=== PATIENT | female | born 1935 | race Caucasian/White ===

== ENCOUNTER → 2017-02-24 | Outpatient (CLI) | payer MEDICARE ==
[~2017-02-24] MED LIST: ACET-62 PO; ALBU2.5V7 AEROSOL; ALBU8.5H INH; ASPI81TA2 PO; ATEN-39 PO; CALC-689 PO; CITA-49 PO; DOCU-118 PO; FLUT100D2 ORAL INH; LISI-126 PO; LORA10TA7 PO; OMEP-29 PO; RANI-197 PO; SIMV40TA2 PO; [UNRECOGNIZED DRUG - CODE] PO
--- NOTE | 2017-02-24 11:36 | DI ---
Indication: ITS.REASON: R19.00 PELVIC SWELLING PROCEDURE: PET/CT SKULL TO THIGH INITIAL: Encounter: Initial Comparison: CT abdomen/pelvis dated January 14, 2017 and abdominal MRI dated January 25, 2017 Technique: 16.3 mCi of F-18 FDG was administered intravenously via the right antecubital fossa. Approximately 60 minutes later 3D PET/CT imaging was performed from the skull base through the mid thighs. The CT images are for attenuation correction purposes only. Findings: No areas of abnormal uptake seen within the skull base. Uptake in the paraspinal musculature of the neck could be due to trauma. Markedly enlarged hypermetabolic thyroid gland possibly due to a multinodular goiter. This has an SUV max of 4.2. No metabolically active lymphadenopathy seen elsewhere within the neck. No axillary or mediastinal lymphadenopathy. No hypermetabolic pulmonary nodules or masses seen. Respiratory motion artifact. Expected myocardial uptake. Liver uptake is fairly homogeneous without discrete metabolically active nodule or mass. There is focal uptake within the right and transverse colon. In retrospect on the CT scan, there is a nodular 3.2 cm low-attenuation lesion adjacent to the ileocecal valve that could represent a colon mass. This area has an SUV max of 12.7. No adjacent metabolic adenopathy. Expected genitourinary tract uptake. The presacral nodular lesion of concern on prior CT scan does show mildly increased FDG accumulation. This has an SUV max of 5.4. No additional metabolic nodules or adenopathy seen within the abdomen or pelvis. No areas of concerning skeletal uptake. Impression: 1. Hypermetabolic right and transverse colon with suggestion of a possible 3 cm mass within the cecum immediately adjacent to the ileocecal valve. Recommend direct visualization with colonoscopy. The presacral hypermetabolic nodules could represent metastatic lymph nodes. If colonoscopy is negative for mass I would recommend biopsy of the presacral lesion. 2. Markedly enlarged heterogeneous thyroid gland suggesting multinodular goiter and possible thyroiditis. .
== END ==
LOC: IMA 08:46
PROVIDERS: ATTEND Nurse Practitioner Family
DX: R19.09 Other intra-abdominal and pelvic swelling, mass and lump (principal); K63.9 Disease of intestine, unspecified; E04.9 Nontoxic goiter, unspecified

== ENCOUNTER 2017-03-22 07:26 | Day surgery (SDC) | payer MEDICARE ==
[~2017-03-22] VITALS: Ht 154.9 cm; Wt 98.6 kg
[~2017-03-22 07:26] MED LIST changes: +LIDOCAINE 1% (10mg/ml) 2ml SDV INJ ONE; +LR 1,000 ML IV SCH
[2017-03-22 07:30] VITALS: BP 132/61; PULSE 64; RESP 17; TEMP 97.8; O2SAT 99; Ht 154.9 cm; Wt 98.6 kg
--- OUTSIDE RECORDS SUMMARY | 2017-03-22 07:30 | XMS REPORT ---
Author Author Bridget Fairchild [facility] eClinicalWorks Address Unknown Phone Unavailable Care Team Providers Care Stamp Maker Name Role Phone Bridget Fairchild CP Unavailable Allergies No Known Allergies Problems Problem Type Condition Code Onset Dates Condition Status Assessment Essential (primary) hypertension I10 Active Problem Hyperlipidemia, unspecified E78.5 Active Problem Major depressive disorder, single episode, unspecified F32.9 Active Problem Essential (primary) hypertension I10 Active Problem Chronic obstructive pulmonary disease, unspecified J44.9 Active Assessment Chronic obstructive pulmonary disease, unspecified J44.9 Active Problem 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 Problem Hypoxemia R09.02 Active Medications Medication Code System Code Instructions Start Date End Date Status Dosage Lisinopril [facility] [address]-13 20 MG Orally Once a day 1 tablet Flovent HFA [facility] [address]-86 110 MCG/ACT Inhalation 1 Aug 30, 2015Nov 2 Ranitidine HCl [facility] [address]-07 150 MG Orally Twice a day 1 capsule Celexa [facility] [address]-19 40 MG Orally Once a day 0.5 tablet Albuterol Sulfate [facility] [address]-65 (2.5 MG/3ML) 0.083% Inhalation Three times a day 3 ml Ultram [facility] [address]-90 50 MG Orally every 6 hrs 1 tablet as needed Simvastatin [facility] [address]-23 40 MG Orally Once a day 1 tablet in the evening Atenolol [facility] [address]-59 50 MG Orally Once a day 1 tablet Omeprazole [facility] [address]-68 20 MG Orally Once a day 1 capsule ProAir HFA [facility] [address]-03 108 (90 Base) MCG/ACT Inhalation every 4 hrs 2 puffs as needed Procedures Procedure Coding System Code Date OFFICE VISIT, ASPHALT PAVER-BRIEF (10 MIN.) CPT-4 24946 Aug 30, 2015 [facility] visit New Patient CPT-4 G0466 Aug 30, 2015 Results No Known Results Summary Purpose eClinicalWorks Submission
--- OUTSIDE RECORDS SUMMARY | 2017-03-22 07:30 | XMS REPORT ---
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
--- OUTSIDE RECORDS SUMMARY | 2017-03-22 07:30 | XMS REPORT ---
Author Author María Shearer Organization eClinicalWorks Address Unknown Phone Unavailable Care Team Providers Care Juice Mixer Name Role Phone María Shearer CP Unavailable Allergies No Known Allergies Problems [...]
--- OUTSIDE RECORDS SUMMARY | 2017-03-22 07:30 | XMS REPORT ---
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 Assessment Chronic obstructive pulmonary disease, unspecified J44.9 Active Assessment Hyperlipidemia, unspecified E78.5 Active Assessment Hypothyroidism, unspecified E03.9 Active Problem Essential (primary) hypertension I10 Active Problem Hyperlipidemia, unspecified E78.5 Active Problem Hypothyroidism, unspecified E03.9 Active Problem Hypoxemia R09.02 Active Problem Chronic obstructive pulmonary disease, unspecified J44.9 Active Problem Major depressive disorder, single episode, unspecified F32.9 Active Problem 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 Medications Medication Code System Code Instructions Start Date End Date Status Dosage Oxygen NDC 0 Titrate inhaled Constant not defined Lisinopril [facility] [address]-15 20 MG Orally Once a day [address] [facility] [address]-60 50 MG Orally Once a day [address]FA [facility] [address]-51 108 (90 Base) MCG/ACT Inhalation every 4 hrs 2 puffs as needed Flovent HFA [facility] [address]-20 110 MCG/ACT Inhalation Twice a day [address] [facility] [address]-07 40 MG Orally Once a day 1 tablet in the evening Celexa [facility] [address]-21 40 MG Orally Once a day 1 tablet Aspir-[address] [facility] [address]-41 81 MG Orally Once a day 1 tablet Calcium + D [facility] [address]-45 600-200 MG-UNIT Orally Once a day 1 tablet with food Tramadol HCl [facility] [address]-70 50 MG Orally every 6 hrs 1 tablet as needed Albuterol Sulfate [facility] 96459876434 (2.5 MG/3ML) 0.083% USE ONE VIAL UP TO 4 TIMES DAILY NEEDED FOR SHORTNESS OF BREATH OR ASTHMA SYMPTOMS- NO DOSES CLOSER THAN 2 HOURS APART VIA NEBULIZER Ranitidine HCl [facility] [address]-38 150 MG Orally Twice a day [address] [facility] [address]-36 20 MG Orally Once a day [address] [facility] [address]-70 100 MG Orally Once a day 1 capsule as needed Procedures Procedure Coding System Code Date IH CMP CPT-4 79171 Sep 29, 2016 IH LIPID PANEL CPT-4 49008 Sep 29, 2016 COMPLETE CBC W/AUTO DIFF WBC CPT-4 30012 Sep 29, 2016 TSH WITH REFLEX T4 CPT-4 28920 Sep 29, 2016 Results No Known Results Summary Purpose eClinicalWorks Submission
--- OUTSIDE RECORDS SUMMARY | 2017-03-22 07:30 | XMS REPORT ---
Author Author Bridget Fairchild [facility] eClinicalWorks Address Unknown Phone Unavailable Care Team Providers Care Marine Water Tender Name Role Phone Bridget Fairchild CP Unavailable [...]
--- OUTSIDE RECORDS SUMMARY | 2017-03-22 07:31 | XMS REPORT ---
Author Author María Shearer Organization eClinicalWorks Address Unknown Phone Unavailable Care Team Providers Care Shellfish Processing Machine Tender Name Role Phone María Shearer CP Unavailable Allergies No Known Allergies Problems Problem Type Condition Code Onset Dates Condition Status Assessment Essential (primary) hypertension I10 Active Assessment Hyperlipidemia, unspecified E78.5 Active Assessment Major depressive disorder, single episode, unspecified F32.9 Active Problem Essential (primary) hypertension I10 Active Problem Hyperlipidemia, unspecified E78.5 Active Problem Hypothyroidism, unspecified E03.9 Active Problem Hypoxemia R09.02 Active Problem Chronic obstructive pulmonary disease, unspecified J44.9 Active Problem Major depressive disorder, single episode, unspecified F32.9 Active Problem 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 Medications Medication Code System Code Instructions Start Date End Date Status Dosage Celexa [facility] [address]-72 40 MG Orally Once a day 1 tablet Lisinopril [facility] [address]-75 20 MG Orally Once a day 1 tablet Omeprazole [facility] [address]-20 20 MG Orally Once a day 1 capsule Ranitidine HCl [facility] [address]-10 150 MG Orally Twice a day 1 capsule Atenolol [facility] [address]-69 50 MG Orally Once a day 1 tablet Simvastatin [facility] [address]-88 40 MG Orally Once a day 1 tablet in the evening Results No Known Results Summary Purpose eClinicalWorks Submission
--- OUTSIDE RECORDS SUMMARY | 2017-03-22 07:31 | XMS REPORT ---
Author Author Bridget Fairchild [facility] eClinicalWorks Address Unknown Phone Unavailable Care Team Providers Care Bone Char Kiln Tender Name Role Phone Bridget Fairchild CP [...]
--- OUTSIDE RECORDS SUMMARY | 2017-03-22 07:31 | XMS REPORT ---
Author Author María Shearer Organization eClinicalWorks Address Unknown Phone Unavailable Care Team Providers Care Sales And Marketing Vice President Name Role Phone María Shearer CP Unavailable Allergies No Known Allergies Problems Problem Type Condition Code Onset Dates Condition Status Problem Essential (primary) hypertension I10 Active Problem Hyperlipidemia, unspecified E78.5 Active Problem Hypothyroidism, unspecified E03.9 Active Problem Hypoxemia R09.02 Active Problem Chronic obstructive pulmonary disease, unspecified J44.9 Active Problem Major depressive disorder, single episode, unspecified F32.9 Active Problem 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
--- OUTSIDE RECORDS SUMMARY | 2017-03-22 07:31 | XMS REPORT ---
Author Author Bridget Fairchild [facility] eClinicalWorks Address Unknown Phone Unavailable Care Team Providers Care Service Operations Manager Name Role Phone Bridget Fairchild CP Unavailable Allergies, Adverse Reactions, Alerts Substance Reaction Event Type eye drops Info Not Available Non Drug Allergy budesomide Info Not Available Non Drug Allergy HCTZ Info Not Available Non Drug Allergy triamterene Info Not Available Non Drug Allergy Problems Problem Type Condition Code Onset Dates Condition Status Assessment Chronic obstructive pulmonary disease, unspecified J44.9 Active Assessment Pain, unspecified R52 Active Problem Hyperlipidemia, unspecified E78.5 Active Problem Major depressive disorder, single episode, unspecified F32.9 Active Problem Essential (primary) hypertension I10 Active Problem Chronic obstructive pulmonary disease, unspecified J44.9 Active Assessment Essential (primary) hypertension I10 Active Problem 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 Problem Hypoxemia R09.02 Active Medications Medication Code System Code Instructions Start Date End Date Status Dosage Atenolol [facility] [address]-34 50 MG Orally Once a day 1 tablet Ultram [facility] [address]-47 50 MG Orally every 6 hrs Jul 04, 2016 1 tablet as needed Celexa [facility] [address]-61 40 MG Orally Once a day 0.5 tablet Ranitidine HCl [facility] [address]-32 150 MG Orally Twice a day 1 capsule Albuterol Sulfate [facility] [address]-25 (2.5 MG/3ML) 0.083% Inhalation Three times a day 3 ml ProAir HFA [facility] [address]-97 108 (90 Base) MCG/ACT Inhalation every 4 hrs 2 puffs as needed Omeprazole [facility] [address]-95 20 MG Orally Once a day 1 capsule Lisinopril [facility] [address]-95 20 MG Orally Once a day 1 tablet Simvastatin [facility] [address]-87 40 MG Orally Once a day 1 tablet in the evening Loratadine [facility] [address]-15 10 MG Orally Once a day March 06, 2016Aug 1 tablet Procedures Procedure Coding System Code Date OFFICE VISIT, EST-LOW COMPLEXITY (15 MIN.) CPT-4 97275 March 06, 2016 [facility] visit Established Patient CPT-4 G0467 March 06, 2016 Vital Signs Date/Time: March 06, 2016 BMI 40.92 Index Height 63 in Weight 231 lbs Respiratory Rate 20 /min Blood Pressure Diastolic 54 mm Hg Blood Pressure Systolic 107 mm Hg Cardiac Monitoring Heart Rate 66 /min Results No Known Results Summary Purpose eClinicalWorks Submission
--- OUTSIDE RECORDS SUMMARY | 2017-03-22 07:31 | XMS REPORT ---
Author Author María Shearer [facility] eClinicalWorks Address Unknown Phone Unavailable Care Team Providers Care Well Cleaner Name Role Phone María Shearer CP Unavailable Allergies, Adverse Reactions, Alerts Substance Reaction Event Type "eye drops" Info Not Available Non Drug Allergy budesonide Info Not Available Non Drug Allergy HCTZ Info Not Available Non Drug Allergy triamterene Info Not Available Non Drug Allergy Problems Problem Type Condition Code Onset Dates Condition Status Assessment Chronic obstructive pulmonary disease, unspecified J44.9 Active Assessment Hyperlipidemia, unspecified E78.5 Active Assessment Major depressive disorder, single episode, unspecified F32.9 Active Problem Hyperlipidemia, unspecified E78.5 Active Problem Major depressive disorder, single episode, unspecified F32.9 Active Problem Essential (primary) hypertension I10 Active Problem Chronic obstructive pulmonary disease, unspecified J44.9 Active Assessment Essential (primary) hypertension I10 Active Problem 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 Problem Hypoxemia R09.02 Active Medications Medication Code System Code Instructions Start Date End Date Status Dosage Loratadine [facility] [address]-25 10 MG Orally Once a day March 06, 2016Aug 1 tablet Omeprazole [facility] [address]-72 20 MG Orally Once a day 1 capsule ProAir HFA [facility] [address]-09 108 (90 Base) MCG/ACT Inhalation every 4 hrs 2 puffs as needed Lisinopril [facility] [address]-47 20 MG Orally Once a day 1 tablet Tramadol HCl [facility] [address]-47 50 MG Orally every 6 hrs 1 tablet as needed Atenolol [facility] [address]-68 50 MG Orally Once a day 1 tablet Flovent HFA [facility] [address]-39 110 MCG/ACT Inhalation Twice a day 1 puff Oxygen ND 0 Titrate inhaled Constant not defined Colace [facility] [address]-15 100 MG Orally Once a day 1 capsule as needed Celexa [facility] [address]-76 40 MG Orally Once a day 1 tablet Calcium + D [facility] [address]-25 600-200 MG-UNIT Orally Once a day 1 tablet with food Albuterol Sulfate [facility] 75596307278 (2.5 MG/3ML) 0.083% USE ONE VIAL UP TO 4 TIMES DAILY NEEDED FOR SHORTNESS OF BREATH OR ASTHMA SYMPTOMS- NO DOSES CLOSER THAN 2 HOURS APART VIA NEBULIZER Ranitidine HCl [facility] [address]-73 150 MG Orally Twice a day 1 capsule Aspir-81 [facility] [address]-54 81 MG Orally Once a day 1 tablet Simvastatin [facility] [address]-26 40 MG Orally Once a day 1 tablet in the evening Procedures Procedure Coding System Code Date OFFICE VISIT, EST-LOW COMPLEXITY (15 MIN.) CPT-4 69551 Aug 11, 2016 [facility] visit Established Patient CPT-4 G0467 Aug 11, 2016 Vital Signs Date/Time: Aug 11, 2016 Temperature 98.6 F Height 63 in Weight 234.3 lbs Blood Pressure Diastolic 62 mm Hg Blood Pressure Systolic 128 mm Hg Cardiac Monitoring Heart Rate 61 /min BMI 41.50 Index Oximetry 98 % Respiratory Rate 20 /min Results No Known Results Summary Purpose eClinicalWorks Submission
--- OUTSIDE RECORDS SUMMARY | 2017-03-22 07:31 | XMS REPORT ---
Author Author Bridget Fairchild [facility] eClinicalWorks Address Unknown Phone Unavailable Care Team Providers Care Beauty Parlor Cleaner Name Role Phone Bridget Fairchild CP Unavailable [...] Instructions Start Date End Date Status Dosage Omeprazole [facility] [address]-60 20 MG Orally Once a day 1 capsule Celexa [facility] [address]-22 40 MG Orally Once a day 0.5 tablet Albuterol Sulfate [facility] [address]-13 (2.5 MG/3ML) 0.083% Inhalation Three times a day 3 ml Ranitidine HCl [facility] [address]-01 150 MG Orally Twice a day 1 capsule Simvastatin [facility] [address]-25 40 MG Orally Once a day 1 tablet in the evening Atenolol [facility] [address]-12 50 MG Orally Once a day 1 tablet ProAir HFA [facility] [address]-06 108 (90 Base) MCG/ACT Inhalation every 4 hrs 2 puffs as needed Ultram [facility] [address]-34 50 MG Orally every 6 hrs 1 tablet as needed Flovent HFA [facility] [address]-05 110 MCG/ACT Inhalation 1 Aug 30, 2015Nov 2 Lisinopril [facility] [address]-63 20 MG Orally Once a day 1 tablet Procedures Procedure Coding System Code Date OFFICE VISIT, EST-LOW COMPLEXITY (15 MIN.) CPT-4 87236 Nov 25, 2015 [facility] visit Established Patient CPT-4 G0467 Nov 25, 2015 Vital Signs Date/Time: Nov 25, 2015 Height 63 in Weight 237 lbs Temperature 97.9 F Blood Pressure Diastolic 80 mm Hg Blood Pressure Systolic 136 mm Hg Cardiac Monitoring Heart Rate 65 /min BMI 41.98 Index Respiratory Rate 20 /min Results No Known Results Summary Purpose eClinicalWorks Submission
--- OUTSIDE RECORDS SUMMARY | 2017-03-22 07:31 | XMS REPORT ---
Author Author Bridget Fairchild [facility] eClinicalWorks Address Unknown Phone Unavailable Care Team Providers Care Paste Mixer Name Role Phone Bridget Fairchild CP Unavailable [...]
--- OUTSIDE RECORDS SUMMARY | 2017-03-22 07:31 | XMS REPORT ---
Author Author María Shearer Organization eClinicalWorks Address Unknown Phone Unavailable Care Team Providers Care Government Instructor Name Role Phone María Shearer CP Unavailable [...]
--- OUTSIDE RECORDS SUMMARY | 2017-03-22 07:31 | XMS REPORT ---
Author Author María Shearer Organization eClinicalWorks Address Unknown Phone Unavailable Care Team Providers Care Dynamite Reclaimer Name Role Phone María Shearer CP Unavailable [...] Instructions Start Date End Date Status Dosage Ranitidine HCl [facility] [address]-52 150 MG Orally Twice a day 1 capsule Results No Known Results Summary Purpose eClinicalWorks Submission
--- OUTSIDE RECORDS SUMMARY | 2017-03-22 07:31 | XMS REPORT ---
Author Author Bridget Fairchild [facility] eClinicalWorks Address Unknown Phone Unavailable Care Team Providers Care Television News Anchor Name Role Phone Bridget Fairchild CP Unavailable [...] Start Date End Date Status Dosage Atenolol [facility] [address]-28 50 MG Orally Once a day 1 tablet Results No Known Results Summary Purpose eClinicalWorks Submission
--- OUTSIDE RECORDS SUMMARY | 2017-03-22 07:31 | XMS REPORT ---
Author Author Bridget Fairchild [facility] eClinicalWorks Address Unknown Phone Unavailable Care Team Providers Care Chain Tender Name Role Phone Bridget Fairchild CP [...]
--- NOTE | 2017-03-22 10:42 | ANESPREOP ---
Anesthesia Record Date and Time DATE: 03/22/17 TIME: 10:34 Proposed Surgical Procedure COLONOSCOPY NPO since: 2300 Allergies: Coded Allergies: budesonide (Verified Allergy, Unknown, 03/22/17) hydrochlorothiazide (Verified Allergy, Unknown, 03/22/17) triamterene (Verified Allergy, Unknown, 03/22/17) Uncoded Allergies: EYE DROPS FOR GLUACOMA (Allergy, Unknown, 11/25/15) Ht/Wt/BMI Height: 5 ' 1.00 " Weight: 98.600 kg BMI: 41.1 kg/m2 Vital Signs Date Time Temp Pulse Resp B/P Pulse Ox O2 Delivery O2 Flow Rate FiO2 03/22/17 07:30 97.8 64 17 132/61 99 Nasal Cannula 2.00 Medications Inpatient Medications Current Medications Medications (Trade) Dose Ordered Sig/Fredrick Start Time Stop Time Status Last Admin Dose Admin Lactated Ringer's (Lactated Ringers) 1,000 ml @ 50 mls/hr Q20H 03/22/17 07:00 03/22/17 07:58 50 MLS/HR Acetaminophen (Acetaminophen) 500 Mg Tablet, 1,000 MG PO DAILY, (Reported) Last Taken: on 03/21/17 2100 Albuterol Sulfate (Albuterol Sulfate) 2.5 Mg/3 Ml Vial.neb, 2.5 MG AEROSOL BID, (Reported) Last Taken: on 03/22/17 0600 Albuterol Sulfate (Proair HFA 90 mcg/actuation) 8.5 Gm Hfa.aer.ad, 1 PUFF INH PRN PRN for asthma, (Reported) Last Taken: on 03/22/17 0700 Aspirin (Aspirin) 81 Mg Tab.chew, 81 MG PO DAILY , (Reported) Last Taken: on 12/22/16 Atenolol (Atenolol) 50 Mg Tablet, 50 MG PO DAILY, ( Reported) Last Taken: on 03/22/17 0600 Calcium Carbonate/Vitamin D3 (Calcium 500 + Vit D Caplet) 1 Each Tablet, 1 TAB PO DAILY, (Reported) Last Taken: on 03/21/17 0800 Citalopram (Celexa) 20 Mg Tablet, 20 MG PO DAILY, (Reported) Last Taken: on 03/21/17 0800 Docusate Sodium (Colace) 100 Mg Capsule, 200 MG PO DAILY PRN for CONSTIPATION/STOOL SOFTENING, (Reported) Last Taken: on Unknown Date & Time Fluticasone Propionate (Flovent Diskus) 100 Mcg Blst.w.dev, 1 PUFF ORAL INH BID, (Reported) Last Taken: on 03/22/17 0600 Lisinopril (Lisinopril) 20 Mg Tablet, 20 MG PO DAILY, (Reported) Last Taken: on 03/21/17 0800 Loratadine (Loratadine) 10 Mg Tablet, 10 MG PO DAILY, (Reported) Last Taken: on 03/21/17 0800 [place]-3 Fatty Acids/Fish Oil (Fish Oil 1,000 mg Softgel) 1 Each Capsule, 1,000 MG PO DAILY, (Reported) Last Taken: on 03/18/17 Omeprazole (Prilosec) 20 Mg Capsule.dr, 20 MG PO DAILY, (Reported) Last Taken: on 03/22/17 06 Ranitidine Hcl (Ranitidine Hcl) 150 Mg Tablet, 150 MG PO BID, (Reported) Last Taken: on 03/22/17 06 Simvastatin (Zocor) 40 Mg Tablet, 40 MG PO DAILY , (Reported) Last Taken: on 03/21/17 0800 Currently on Beta Esteban: Yes Beta Esteban Last Taken: ATENOLOL @ 0600 03/22/17 Medical/Surgical History Anesthesia PMH: Reports: *Dyspnea (WITH ACTIVITY), *Hypertension, Arthritis, Asthma (CHRONIC ASTHMA), COPD (on O2/NC 24hours a day), 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 smoked today?: No Use Chewing Tobacco?: No Second Hand Exposure: Yes (long history ) Substance Use Type: does not use Alcohol Intake: none HX of Last Menstrual Period: HYST Past Surgical History Orthopedic Surgeries: No Abdominal Surgeries: Yes - APPY, DASHAWN Genitourinary Surgeries: No Cardiac Surgeries: No Endocrine Surgeries: No Reproductive Surgeries: Yes - HYST Neurological Surgeries: No Ear Surgeries: No Nose Surgeries: No Throat Surgeries: No Other Surgeries: Yes - EYE SURGERY TEEN,REYNALDO CATARACTS Anesthesia Adverse Reactions: FOUND none Family Hx of Anesthesia Advers: none Hx of Motion Sickness: No Physical Exam Respiratory: Bilat breath sounds equal, Lungs clear Cardiovascular: FOUND Regular rate, rhythm Airway Assessment Mallampati Score: IV Neck Extension: Poor Overall Assessment: May Be Diff Intubation ASA: 3 Plan Anesthesia Plan: TIVA, MAC Discussion Discussed risks/options/alternatives of anesthesia and questions answered. Patient consents. Nursing pain assessment noted. Present: Family Member Attestation Statement Prior to the delivery of any anesthetic medication, I examined the patient, developed the plan, obtained the patient's consent and discussed the risk and benefits of the procedure with the patient/guardian. CHAYA SEAMAN CRNA March 22, 2017 10:39
[2017-03-22] MEDS ORDERED: ALFENTANIL 500mcg/ml - 2ml INJECTION ONE ×2 (11:19→11:31)
[2017-03-22] MEDS ORDERED: KETAMINE 500mg/10ml INJECTION ONE (11:31)
[2017-03-22] MEDS ORDERED: MIDAZOLAM 5mg/5ml INJECTION ONE (11:31)
[2017-03-22 11:41] VITALS: BP 126/58; PULSE 73; RESP 16; TEMP 97.3; O2SAT 100
[2017-03-22 11:50] VITALS: BP 132/60; PULSE 70; RESP 22; O2SAT 100
--- NOTE | 2017-03-22 11:55 | GSPOSTPROC ---
Immediate Operative Note DATE: 03/22/17 TIME: 11:53 Postop Diagnosis: * Large ascending colon mass - pathology pending * 1 cm polyp of the hepatic flexure (not removed) * 0.7 cm sessile polyp of the sigmoid colon * 0.5 cm pedunculated polyp of the distal rectum * Severe sigmoid diverticulosis * Mild internal hemorrhoids Surgical Procedure: C-scope w/Polypectomy (and biopies) Surgeon: Yulissa ASA: 3 JAIRON PENA MD March 22, 2017 11:55
[2017-03-22 12:05] VITALS: BP 120/56; PULSE 60; RESP 20; O2SAT 99
--- NOTE | 2017-03-22 12:05 | ANESPO ---
Post-Op Note Date 03/22/17 Time: 12:04 Status Pt Participated in Evaluation: Pt participated in person Vital Signs Date Time Temp Pulse Resp B/P Pulse Ox O2 Delivery O2 Flow Rate FiO2 03/22/17 11:50 70 22 132/60 100 Nasal Cannula 2.00 03/22/17 11:41 97.3 Respiratory Function: Airway patent, Regular respirations Cardiovascular Function: Regular pulse Telemetry Pattern: SR Mental Status: Alert/oriented Pain Level Intensity: 0 Unable to Assess Pain Due To: Medicated/Sleeping Hydration: Taking po fluids Complications during Recovery None apparent Follow-Up Instructions Instructions Per Surgeon ROSELIA DIXON CRNA March 22, 2017 12:05
[2017-03-22 12:15] VITALS: BP 120/56; PULSE 56; RESP 18; O2SAT 100
[2017-03-22 12:25] VITALS: BP 144/61; PULSE 56; RESP 17; O2SAT 100
--- NOTE | 2017-03-23 08:18 | OPNOTEF ---
DATE OF OPERATION 03/22/2017 SURGEON Tod Duenas MD PREOPERATIVE DIAGNOSES 1. Imaging abnormality of the colon with a possible mass of the cecum. 2. 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 3. Hemoccult positive stools. 4. Personal history of adenomatous colon polyps. POSTOPERATIVE DIAGNOSES 1. Large mass of the ascending colon - pathology pending. 2. 1 cm polyp at the hepatic flexure - not removed given proximity to the large colon mass. 3. 0.7 cm sessile polyp of the sigmoid colon. 4. 0.5 cm pedunculated polyp of the distal rectum. 4. Severe sigmoid diverticulosis. 5. Mild internal hemorrhoids. PROCEDURE Colonoscopy with biopsies of ascending colon mass, hot biopsy forceps polypectomy, and hot snare polypectomy. ANESTHESIA MAC ASA CLASS 3 INDICATIONS The patient is an 81-year-old female who had been having some rectal bleeding and had been noted to have a positive iFOB test in December. She had a tubular adenoma removed from the descending colon in September 2013. Repeat colonoscopy had been recommended in 5 years. She had imaging done and had a CT that showed a presacral mass that led to additional imaging of an MRI of the abdomen. This was also inconclusive, so a PET scan had been performed in early February and it revealed a possible 3 cm hypermetabolic mass within the cecum by the ileocecal valve. A colonoscopy was recommended to directly visualize the mucosa in the area of concern even though it had not been 5 years since her last colonoscopy. FINDINGS There was a very large, irregular and friable mass in the ascending colon just distal to the ileocecal valve. Since this was about half of the circumference of the lumen of the colon, it was felt that removal was not feasible and biopsies were taken. The lesion was not obstructing or nearly obstructing but was large in size compared to the lumen of the bowel. At the hepatic flexure close by there was a small polyp but given its proximity to the larger mass it was not removed. There was a 0.7 cm sessile polyp in the sigmoid colon that was not able to be encircled with the polypectomy snare, so hot biopsy forceps polypectomy was utilized. There was a final polyp in the distal rectum that was removed with the polypectomy snare. She did have severe sigmoid diverticulosis but no evidence of diverticulitis or diverticular bleeding. She did have mild internal hemorrhoids. DESCRIPTION OF PROCEDURE After informed consent was obtained the patient was taken to the endoscopy suite and placed in left lateral decubitus position. 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 Once she was adequately sedated, a digital rectal exam was performed and was normal. The patient had received a MiraLAX/Dulcolax bowel prep the day prior. An Olympus video colonoscope with an AmplifEYE device in place was inserted and retroflexed to examine distal rectum. Mild internal hemorrhoids were noted. The scope was returned to a neutral position. It was advanced to the level of the cecum with some moderate difficulty in traversing the sigmoid colon given tortuosity in combination with the numerous diverticula. Upon reaching the cecum, the cecum was identified by the appendiceal orifice and ileocecal valve. The scope was slowly withdrawn examining the mucosa circumferentially. The large mass in the ascending colon had been encountered during scope insertion, but biopsies were taken during scope removal. Multiple biopsies around the mass were taken and were sent to pathology. The sites were inspected and were found to be appropriately hemostatic. The scope was slowly withdrawn and the smaller polyp was encountered at the hepatic flexure but, given the proximity to the mass itself, the polyp was left in place. The scope was withdrawn to the level of the sigmoid colon and a sessile polyp was encountered. Attempts were made to encircle this with the polypectomy snare but the polyp was too sessile to encircle with the snare, so biopsy forceps were used to grasp the polyp and the polyp mucosa was elevated. Cautery was applied to destroy the polyp and multiple samples of the polyp were taken and were sent to pathology. The scope was then withdrawn to the distal rectum where a small polyp was encountered. Since it was pedunculated, it was encircled with the polypectomy snare and the mucosa was elevated prior to division of the base of polyp. It was retrieved via the suction trap and the carbon dioxide insufflation was evacuated. The scope was then removed. The patient tolerated the procedure well. She was awakened and transferred to the recovery area in stable condition. RECOMMENDATIONS 1. Await pathology to determine the etiology of the ascending colon mass. 2. If this is confirmed to be ascending colon cancer, then significant discussion around potential treatment options will need to be made with the patient. Given her kyphosis and lung problems, she would not be a surgical candidate at [facility] since her anesthetic would be too complicated. 3. Stop aspirin and fish oil given the potential for bleeding from the mass which is her likely source of bleeding. 4. It is unclear how her presacral mass relates to her ascending colon mass or if it is a separate process. RUDY
== END 2017-03-22 12:38 | disposition home or self-care (01) ==
LOC: NSC 07:26
PROVIDERS: ATTEND Surgery
DX: C18.2 Malignant neoplasm of ascending colon (principal); K63.5 Polyp of colon; K57.30 Diverticulosis of large intestine without perforation or abscess without bleeding; K64.8 Other hemorrhoids; R19.5 Other fecal abnormalities; R93.3 Abnormal findings on diagnostic imaging of other parts of digestive tract; Z86.010 Personal history of colon polyps; I10 Essential (primary) hypertension; E78.00 Pure hypercholesterolemia, unspecified; E04.9 Nontoxic goiter, unspecified; K21.9 Gastro-esophageal reflux disease without esophagitis; Z87.19 Personal history of other diseases of the digestive system; F41.9 Anxiety disorder, unspecified; M06.9 Rheumatoid arthritis, unspecified; M81.0 Age-related osteoporosis without current pathological fracture; J45.909 Unspecified asthma, uncomplicated; J44.9 Chronic obstructive pulmonary disease, unspecified; R09.02 Hypoxemia; Z99.81 Dependence on supplemental oxygen; Z79.82 Long term (current) use of aspirin; Z79.899 Other long term (current) drug therapy
CPT/HCPCS: 45380; 45384; 45385; J2250; J7120